=== PATIENT | female | born 1975 | race Caucasian/White ===

== ENCOUNTER 2023-09-17 15:34 | Day surgery (SDC) | payer BC ==
[2023-09-17] MEDS ORDERED: Decadron 4 MG INJ IV ONE (15:35)
[2023-09-17] MEDS ORDERED: LIDOCAINE HCL 1% 50 MG/5 ML VL PF IJ ONE (15:35)
[2023-09-17] MEDS ORDERED: Sodium Chloride 0.9(Preservative Free) 10 ML IJ ONE (15:35)
[2023-09-17] MEDS ORDERED: Lactated Ringers 1,000 ML IV ONE (17:02)
--- NOTE | 2023-09-17 18:14 | XRAY ---
Indication: Cervical LESA. Intraoperative fluoroscopy provided for 17 seconds. 3 digital spot images submitted for interpretation demonstrates posterior needle tip projecting posterior to cervical thoracic junction. Small amount of contrast injected for needle tip placement. Correlate with intraoperative findings/report.
--- NOTE | 2023-09-18 13:12 | XRAY ---
17 seconds of fluoroscopy was used in surgery for a cervical LESA.
== END 2023-09-17 17:35 | disposition home or self-care (01) ==
LOC: SDC-PAIN 15:34
PROVIDERS: ATTEND Psychiatry & Neurology Pain Medicine
DX: M54.12 Radiculopathy, cervical region (principal)
CPT/HCPCS: 62321; 72040; 77003; J1100; J2001; Q9966